=== PATIENT | female | born 1955 | race Caucasian/White ===

== ENCOUNTER 2017-01-26 12:00 | Emergency (ER) | payer BC, OTHER ==
[2017-01-26 12:24] VITALS: BP 125/87; BMI 24.5
--- NOTE | 2017-01-26 12:48 | DR.GENAD ---
HPI - PCP Primary Care Physician: SHABBIR VANG - HPI Comment HPI Comment: PATIENT FELT FEVERISH AT HOME. ALLERGY MEDS NOT HELPING. - Complaint/Symptoms Chief Complaint Doctors Comments: COUGH, COUGH CONGESTION AND CHEST PAIN. Chief Complaint:: PT C/O CCC, ? SINUSES, AND LOOSING MY VOICE AND NOT FEELING GOOD". Self Treatment fo Chief Complaint: PT WENT TO DR. ALAN OFFICE AND WAS GIVEN ALLERGY MEDS 3 WEEKS AGO AND THEY ARE NOT DOING ANY GOOD.. - Nurses notes reviewed Nurses Notes Review: Yes - Source History Provided: Patient - Mode of Arrival Mode of Arrival: Ambulatory - Timing Onset of Chief Complaint: 01/06/17 Came on: Suddenly - Duration Duration: Constant Duration: Days - Severity Severity: Moderate PMH - PMH Past Medical History: Yes Past Medical History: Anxiety, Arthritis, Depression, Hypertension, Hyperthyroidism Past Surgical History: Yes Surgical History: Hysterectomy, Ortho Surgery Past Surgical History Comment: PLATE TO HER RIGHT ARM, MESH SLING. - Family History History of Family Medical Conditions: No Family Medical History Comment: COPD , CA, DM - Social History Does patient currently use any type of tobacco product: No Have you used tobacco products in the last 12 months: No Does any household member use tobacco: No Alcohol Use: None Do you use any recreational Drugs:: No Lives With: Family Lives Where: Home - infectious screening In the last 2 months have you had wt loss of >10#?: NO Have you had fever, night sweats or hemotysis?: No Have you traveled outside the country in the last 6 months?: No Isolation: Standard ROS - Review of Systems Constitutional: Fever, Fatigue. negative: Chills Eyes: No Symptoms Reported. negative: Eye Pain, Discharge ENTM: Nose Discharge, Nose Congestion, Throat Pain. negative: Ear Pain Respiratoy: Productive Cough, Non-Productive Cough. negative: Short of Breath, Wheezing, Hemoptysis Cardiovascular: Chest Pain. negative: Edema, Palpitations Gastrointestinal/Abdominal: No Symptoms Reported. negative: Abdominal Pain, Constipation, Diarrhea, Nausea, Vomiting Genitourinary: No Symptoms Reported. negative: Dysuria, Frequency, Hematuria Neurological: Headache, Weakness, Dizziness Musculoskeletal: Muscle Pain, Chest wall Integumentary: No Symptoms Reported Hematologic/Lymphatic: No Symptoms Reported Endocrine: No Symptoms Reported All Other Systems: Reviewed and Negative PE - Vital Signs Vitals: Temperature 98.0 F Pulse Rate 99 Respiratory Rate 22 Blood Pressure 125/87 O2 Sat by Pulse Oximetry 98 - General Limitations: No Limitations General Appearance: Alert - Head Head Exam: Normal Inspection - Eyes Eye exam: Normal Appearance - ENT ENT Exam: Normal External Ear Exam TM/Canal Exam: Bilateral Normal Nose Exam: Normal Nose Exam Mouth Exam: Normal Inspection Throat Exam: Tonsillar Erythema. negative: Tonsillomegaly, Tonsillar Exudate - Neck Neck Exam: Trachea Midline. negative: Tenderness, Meningismus, Lymphadenopathy - Chest Chest Inspection: Symmetric Chest Wall Rise - Respiratory Respiratory Exam: Normal Lung Sounds Bilat Respiratory Exam: Bilateral Clear to Auscultation - Cardiovascular Cardiovascular Exam: Regular Rate, Normal Rhythm, Normal Heart Sounds - Abdominal Exam Abdominal Exam: Normal Bowel Sounds, Soft. negative: Tenderness - Extremities Extremities Exam: Normal Inspection - Back Back Exam: Normal Inspection - Neurologic Neurological Exam: Alert, Oriented X3 - Psychiatric Psychiatric Exam: Normal Affect, Normal Mood - Skin Skin Exam: Normal Color MDM - Differential Diagnosis Differential Diagnosis: BRONCHITIS, PNEUMONIA, URI Course - Treatment Treatment: REPORT DISCUSS WITH PATIENT. - Education/Counseling Education/Counseling: Patient, Education Educated On: Diagnosis, Needs for Follow Up ROR - Labs Reviewed Laboratory Results Reviewed?: Yes Result Diagrams: 01/26/17 13:11 01/26/17 13:11 Laboratory: WBC 9.2 X10^3/uL (3.6-10.0) 01/26/17 13:11 RBC 3.54 X10^6/uL (3.5-5.4) 01/26/17 13:11 Hgb 11.1 g/dL (12.0-16.0) L 01/26/17 13:11 Hct 33.3 % (36.0-47.0) L 01/26/17 13:11 MCV 94.0 fL (80.0-100.0) 01/26/17 13:11 MCH 31.3 pg (27.0-34.0) 01/26/17 13:11 MCHC 33.3 g/dL (33.0-35.0) 01/26/17 13:11 RDW 13.1 % (11.6-16.5) 01/26/17 13:11 Plt Count 270 X10^3/uL (150.0-450.0) 01/26/17 13:11 MPV 6.8 fL (7.4-11.0) L 01/26/17 13:11 Neut % 68.8 % (42.0-75.0) 01/26/17 13:11 Lymph % 20.7 % (21.0-51.0) L 01/26/17 13:11 [place] % 6.3 % (0.0-13.0) 01/26/17 13:11 Eos % 3.3 % (0.9-2.9) H 01/26/17 13:11 Baso % 0.9 % (0.2-1.0) 01/26/17 13:11 Neut # 6.4 x10^3/uL (2.2-4.8) H 01/26/17 13:11 Lymph # 1.9 X10^3/uL (1.3-2.9) 01/26/17 13:11 [place] # 0.6 x10^3/uL (0.3-0.8) 01/26/17 13:11 Eos # 0.3 x10^3/uL (0.0-0.2) H 01/26/17 13:11 Baso # 0.1 X10^3/uL (0.0-0.1) 01/26/17 13:11 Absolute Nucleated RBC 0.1 /100WBC 01/26/17 13:11 Sodium 144 mmol/L (136-145) 01/26/17 13:11 Corrected Sodium 145 mmol/L (136-145) 01/26/17 13:11 Potassium 4.8 mmol/L (3.5-5.1) 01/26/17 13:11 Chloride 107 mmol/L (98-107) 01/26/17 13:11 Carbon Dioxide 26.7 mmol/L (21-32) 01/26/17 13:11 BUN 13 mg/dL (7-18) 01/26/17 13:11 Creatinine 1.01 mg/dL (0.55-1.02) 01/26/17 13:11 Est GFR (MDRD) Af Amer > 60 (>60) 01/26/17 13:11 Est GFR (MDRD) Non-Af 59 (>60) 01/26/17 13:11 Glucose 144 mg/dL (65-99) H 01/26/17 13:11 Calcium 8.9 mg/dL (8.5-10.1) 01/26/17 13:11 Corrected Calcium TNP 01/26/17 13:11 Total Bilirubin 0.30 mg/dL (0.2-1.0) 01/26/17 13:11 AST 18 Units/L (15-37) 01/26/17 13:11 ALT 20 Units/L (12-78) 01/26/17 13:11 Alkaline Phosphatase 89 Units/L (46-116) 01/26/17 13:11 Total Protein 7.3 g/dL (6.4-8.2) 01/26/17 13:11 Albumin 4.0 g/dL (3.4-5.0) 01/26/17 13:11 Globulin 3.3 g/dL (2.5-4.5) 01/26/17 13:11 Albumin/Globulin Ratio 1.2 Ratio (1.1-2.1) 01/26/17 13:11 - XRAY XRAY Interpreted by: Radiologist XRAY Findings: REPORT DISCUSS WITH PATIENT. - Diagnosis Discharge Problem: Acute bronchitis Qualifiers: Bronchitis organism: other organism Qualified Code(s): J20.8 - Acute bronchitis due to other specified organisms - Discharge Plan Disposition: 01 HOME, SELF-CARE Condition: Stable Prescriptions: Doxycycline (Monohydrate) [Doxycycline Monohydrate] 100 mg PO BID #20 cap Hydrocodone Polist/Chlorphenir [Tussionex Pennkinetic Susp] 5 ml PO Q12H PRN # 60 ml PRN Reason: Cough - Follow ups/Referrals Follow ups/Referrals: Odilon Nino [Primary Care Provider] - 3 days - Instructions Instructions: Acute Bronchitis Additional Instructions: RETURN TO ED IF WORSE.
[2017-01-26 13:26] LABS: BASOPHILS # (AUTO) 0.1 X10^3/uL (0.0-0.1); BASOPHILS % (AUTO) 0.9 % (0.2-1.0); EOSINOPHILS # (AUTO) 0.3 x10^3/uL (0.0-0.2); EOSINOPHILS % (AUTO) 3.3 % (0.9-2.9); HEMATOCRIT 33.3 % (36.0-47.0); HEMOGLOBIN 11.1 g/dL (12.0-16.0); LYMPHOCYTES # (AUTO) 1.9 X10^3/uL (1.3-2.9); LYMPHOCYTES % (AUTO) 20.7 % (21.0-51.0); MEAN CORPUSCULAR HEMOGLOBIN 31.3 pg (27.0-34.0); MEAN CORPUSCULAR HGB CONC 33.3 g/dL (33.0-35.0); MEAN PLATELET VOLUME 6.8 fL (7.4-11.0); MONOCYTES # (AUTO) 0.6 x10^3/uL (0.3-0.8); MONOCYTES % (AUTO) 6.3 % (0.0-13.0); NEUTROPHILS # (AUTO) 6.4 x10^3/uL (2.2-4.8); NEUTROPHILS % (AUTO) 68.8 % (42.0-75.0); PLATELET COUNT 270 X10^3/uL (150.0-450.0); RED BLOOD COUNT 3.54 X10^6/uL (3.5-5.4); RED CELL DISTRIBUTION WIDTH 13.1 % (11.6-16.5); WHITE BLOOD COUNT 9.2 X10^3/uL (3.6-10.0)
--- NOTE | 2017-01-26 13:34 | RAD ---
AP chest Indication: Chest pain with cough Findings: No focal airspace opacity or pleural effusion. No pneumothorax. Heart size is normal. Multiple curvilinear increased densities are noted within the upper thorax and supraclavicular soft tissues in asymmetric pattern likely representing artifact related to an object/necklace superficial to the patient, clinical correlation is needed. Increased density projecting over the right humeral head footplate suspicious for hydroxyapatite dep osition. If there is symptoms within the right shoulder a dedicated right shoulder radiographs can b e performed as clinically warranted. Impression: See above. Reported By:
[2017-01-26 13:37] LABS: ALANINE AMINOTRANSFERASE 20 Units/L (12-78); ALKALINE PHOSPHATASE 89 Units/L (46-116); ASPARTATE AMINO TRANSFERASE 18 Units/L (15-37); BLOOD UREA NITROGEN 13 mg/dL (7-18); CALCIUM 8.9 mg/dL (8.5-10.1); CARBON DIOXIDE 26.7 mmol/L (21-32); CHLORIDE 107 mmol/L (98-107); COR NA(FOR HYPERGLY) 145 mmol/L (136-145); CREATININE 1.01 mg/dL (0.55-1.02); GLUCOSE 144 mg/dL (65-99); SODIUM 144 mmol/L (136-145); TOTAL PROTEIN 7.3 g/dL (6.4-8.2); eGFR BLACK RACES > 60 (>60); eGFR NON BLACK RACES 59 (>60)
== END 2017-01-26 13:56 | disposition home or self-care (01) ==
LOC: ER 12:28
DX: J20.8 Acute bronchitis due to other specified organisms (principal)
CPT/HCPCS: 36415; 71010; 80053; 85025; 99282; 99283

== ENCOUNTER 2017-07-12 06:33 | Emergency (ER) | payer OTHER ==
[2017-07-12 06:34] VITALS: BP 125/87
[2017-07-12 06:52] VITALS: BMI 27.0
--- NOTE | 2017-07-12 07:13 | DR.GENAD ---
HPI - PCP Primary Care Physician: SHABBIR - Complaint/Symptoms Chief Complaint Doctors Comments: Patient states she has been unable to get rid of her cough for the past two weeks. States she has been taking medicines from Dr. Nino and continues to cough. States she was to see Dr. Nino two days ago but they were so busy they called her some medicines into the drug store: Cipro and nasocort nasal spray. States she has taken several other medicines before this but it did not work. She has a cough with scant white, clear and sometimes greenish sputum. States she has chest pain when she cough and she has been having dysuria but denies hematuria or nocturia. She denies tobacco or alcohol usage. She denies wheezing or having SOB. Chief Complaint:: COUGH X 2 WEEKS; VISIT TO PCP X 1 WITH CIPRO ANTIBIOTIC; SORE THROAT DUE TO COUGH Self Treatment fo Chief Complaint: PRESCRIBED ANTIBIOTIC; NYQUIL - Nurses notes reviewed Nurses Notes Review: Yes - Source History Provided: Patient - Mode of Arrival Mode of Arrival: Ambulatory - Timing Onset of Chief Complaint: 06/25/17 Came on: Gradually - Duration Duration: Intermittent How lon Duration: Weeks - Location Location: chest pain when coughs - Severity Severity: Mild - Modifying Factors Worsens:: coughing Improves:: nothing PMH - PMH Past Medical History: Yes Past Medical History: Anxiety, Diabetes, Dyslipidemia, Hypertension Past Surgical History: Yes Surgical History: Hysterectomy - Family History History of Family Medical Conditions: No - Social History Does patient currently use any type of tobacco product: No Have you used tobacco products in the last 12 months: No Type of Tobacco Use: None Does any household member use tobacco: No Alcohol Use: None Do you use any recreational Drugs:: No Lives With: Alone Lives Where: Home - infectious screening In the last 2 months have you had wt loss of >10#?: NO Have you had fever, night sweats or hemotysis?: No Have you traveled outside the country in the last 6 months?: No Isolation: Standard ROS - Review of Systems Constitutional: No Symptoms Reported. negative: See HPI, Chills, Diaphoresis, Fever, Malaise, Weakness, Irritable, Fatigue, Loss of Appetite, Other Eyes: No Symptoms Reported ENTM: No Symptoms Reported, Nose Discharge, Nose Congestion, Throat Pain. negative: See HPI, Ear Pain, Ear Discharge, Pulling on Ears, Hearing Loss, Nose Pain, Epistaxis, Mouth Pain, Mouth Swelling, Loose Teeth, Drooling, Throat Swelling, Ear Foreign Body Respiratoy: No Symptoms Reported, Productive Cough, Dry Cough. negative: See HPI, Non-Productive Cough, Moist Cough, Hacking Cough, Barking Cough, Brassy Cough, Orthopnea, Short of Breath, Stridor, Wheezing, Hemoptysis, Other Cardiovascular: No Symptoms Reported, Chest Pain (when she coughs). negative: See HPI, Edema, Palpitations, Syncope, Cyanosis, Skin Mottling, Other Gastrointestinal/Abdominal: No Symptoms Reported. negative: See HPI, Abdominal Pain, Constipation, Diarrhea, Nausea, Vomiting, Food Intolerance, Other Genitourinary: Dysuria. negative: No Symptoms Reported, See HPI, Discharge, Frequency, Hematuria, Pain, Bleeding, Other Neurological: No Symptoms Reported. negative: See HPI, Anxiety, Depressed, Emotional Problems, Headache, Numbness, Paresthesia, Pre-existing Deficit, Seizure, Tingling, Tremors, Weakness, Dizziness, Problems Walking, Speech Problem, Other Musculoskeletal: No Symptoms Reported Integumentary: No Symptoms Reported. negative: See HPI, Change in Color, Change in Hair/Nails, Dryness, Lesions, Lumps, Rash, Itching, Wound, Bruises, Juandice, Other Hematologic/Lymphatic: No Symptoms Reported. negative: See HPI, Anemia, Blood Clots, Easy Bleeding, Easy Bruising, Swollen Glands, Lymphadenopathy, Other Endocrine: No Symptoms Reported Psychiatric: No Symptoms Reported PE - Vital Signs Vitals: Temperature 97.9 F Pulse Rate 87 Respiratory Rate 20 Blood Pressure 125/87 O2 Sat by Pulse Oximetry 97 - General Limitations: No Limitations General Appearance: Alert, In No Apparent Distress - Head Head Exam: Normal Inspection, Atraumatic, Normocephalic - Eyes Eye exam: Normal Appearance, PERRL, EOMI. negative: Scleral Icterus, Conjunctival Injection, Nystagmus, Miosis, Mydrasis, Periorbital Swelling, Periorbital Tenderness, Other - ENT ENT Exam: Normal Exam, Normal Oropharynx, Normal External Ear Exam, Mucous Membranes Moist, TM's Normal Bilaterally External Ear Exam: Normal External Inspection TM/Canal Exam: Bilateral Normal Nose Exam: Normal Nose Exam Mouth Exam: Normal Inspection Throat Exam: Normal Inspection. negative: Tonsillar Erythema, Tonsillomegaly, Tonsillar Exudate, R Peritonsillar Mass, L Peritonsillar Mass, Muffled Voice, Other - Neck Neck Exam: Normal Inspection, Full ROM, Trachea Midline - Chest Chest Inspection: Normal Inspection, Symmetric Chest Wall Rise - Respiratory Respiratory Exam: Normal Lung Sounds Bilat. negative: Accessory Muscle Use, Chest Wall Tenderness, Prolonged Expiratory Phase, Respiratory Distress, Stridor , Other Respiratory Exam: Bilateral Clear to Auscultation - Cardiovascular Cardiovascular Exam: Regular Rate, Normal Rhythm, Normal Heart Sounds. negative : Bradycardia, Tachycardia, Irregular Rhythm, Systolic Murmur, Diastolic Murmur , Rubs, Gallop, Clicks, JVD, +S1, +S2, +S3, +S4, Other - Abdominal Exam Abdominal Exam: Normal Inspection, Normal Bowel Sounds, Soft. negative: Distention, Tenderness, Guarding, Rebound, Rigidity, Dimnished Bowel Sounds, Hyperactive Bowel Sounds, Hypoactive Bowel Sounds, Organomegaly, Trauma, Incision, Ascites, Mass, Bruit, Pulsatile Mass, Hernia, Other Abdominal Tenderness: negative: RUQ, RLQ, LUQ, LLQ, Epigastrium, Suprapubic, Diffuse, Mild, Moderate, Severe, Other - Extremities Extremities Exam: Normal Inspection, Full ROM, Normal Capillary Refill. negative: Tenderness, Edema, Joint Swelling, Calf Tenderness, Other - Back Back Exam: Normal Inspection, Full ROM. negative: Tenderness, (R) CVA Tenderness, (L) CVA Tenderness, Muscle Spasm, Paraspinal Tenderness, Vertebral Tenderness, Rashes, (R) Sciatic Notch Tenderness, (L) Sciatic Notch Tendern, (R ) Straight Leg Raise, (L) Straight Leg Raise, Other - Neurologic Neurological Exam: Alert, Oriented X3, CN II-XII Intact, Normal Gait, Reflexes Normal - Psychiatric Psychiatric Exam: Normal Affect, Normal Mood. negative: Depressed, Agitated, Anxious, Flat Affect, Manic, Homicidal Ideation, Suicidal Ideation, Other - Skin Skin Exam: Warm, Dry, Intact, Normal Color Course - Education/Counseling Education/Counseling: Patient, Family Educated On: Treatment, Diagnosis, Prognosis (Patient to continue Cipro twice daily as directed x10 days), Needs for Follow Up ROR - Labs Reviewed Laboratory Results Reviewed?: Yes (all labs and x-ray results reviewed and discussed with patient) Result Diagrams: 07/12/17 07:10 07/12/17 07:10 Laboratory: WBC 6.2 X10^3/uL (3.6-10.0) 07/12/17 07:10 RBC 3.70 X10^6/uL (3.5-5.4) 07/12/17 07:10 Hgb 11.8 g/dL (12.0-16.0) L 07/12/17 07:10 Hct 34.6 % (36.0-47.0) L 07/12/17 07:10 MCV 93.5 fL (80.0-100.0) 07/12/17 07:10 MCH 31.8 pg (27.0-34.0) 07/12/17 07:10 MCHC 34.0 g/dL (33.0-35.0) 07/12/17 07:10 RDW 14.1 % (11.6-16.5) 07/12/17 07:10 Plt Count 313 X10^3/uL (150.0-450.0) 07/12/17 07:10 MPV 7.1 fL (7.4-11.0) L 07/12/17 07:10 Neut % 52.6 % (42.0-75.0) 07/12/17 07:10 Lymph % 33.3 % (21.0-51.0) 07/12/17 07:10 [place] % 8.9 % (0.0-13.0) 07/12/17 07:10 Eos % 3.9 % (0.9-2.9) H 07/12/17 07:10 Baso % 1.3 % (0.2-1.0) H 07/12/17 07:10 Neut # 3.3 x10^3/uL (2.2-4.8) 07/12/17 07:10 Lymph # 2.1 X10^3/uL (1.3-2.9) 07/12/17 07:10 [place] # 0.6 x10^3/uL (0.3-0.8) 07/12/17 07:10 Eos # 0.2 x10^3/uL (0.0-0.2) 07/12/17 07:10 Baso # 0.1 X10^3/uL (0.0-0.1) 07/12/17 07:10 Absolute Nucleated RBC 0.0 /100WBC 07/12/17 07:10 Sodium 139 mmol/L (136-145) 07/12/17 07:10 Corrected Sodium TNP 07/12/17 07:10 Potassium 4.2 mmol/L (3.5-5.1) 07/12/17 07:10 Chloride 103 mmol/L (98-107) 07/12/17 07:10 Carbon Dioxide 26.5 mmol/L (21-32) 07/12/17 07:10 BUN 13 mg/dL (7-18) 07/12/17 07:10 Creatinine 1.16 mg/dL (0.55-1.02) H 07/12/17 07:10 Est GFR (MDRD) Af Amer > 60 (>60) 07/12/17 07:10 Est GFR (MDRD) Non-Af 50 (>60) L 07/12/17 07:10 Glucose 110 mg/dL (65-99) H 07/12/17 07:10 Calcium 9.7 mg/dL (8.5-10.1) 07/12/17 07:10 Corrected Calcium TNP 07/12/17 07:10 Total Bilirubin 0.50 mg/dL (0.2-1.0) 07/12/17 07:10 AST 22 Units/L (15-37) 07/12/17 07:10 ALT 24 Units/L (12-78) 07/12/17 07:10 Alkaline Phosphatase 93 Units/L (46-116) 07/12/17 07:10 Total Protein 7.7 g/dL (6.4-8.2) 07/12/17 07:10 Albumin 4.1 g/dL (3.4-5.0) 07/12/17 07:10 Globulin 3.6 g/dL (2.5-4.5) 07/12/17 07:10 Albumin/Globulin Ratio 1.1 Ratio (1.1-2.1) 07/12/17 07:10 - XRAY XRAY Interpreted by: Self (CXR: no acute cardiopulmonary changes noted) - Diagnosis Discharge Problem: Bronchitis Sinusitis, acute Qualifiers: Sinusitis location: ethmoidal - Discharge Plan Disposition: HOME, SELF-CARE Condition: Stable Prescriptions: Montelukast Sodium [Singulair Tab 10 mg] 10 mg PO HS #30 tab - Follow ups/Referrals Follow ups/Referrals: Odilon Nino [Primary Care Provider] - 3 days - Instructions Instructions: Sinusitis, Adult, [id number], Acute Bronchitis
[2017-07-12 07:30] LABS: BASOPHILS # (AUTO) 0.1 X10^3/uL (0.0-0.1); BASOPHILS % (AUTO) 1.3 % (0.2-1.0); EOSINOPHILS # (AUTO) 0.2 x10^3/uL (0.0-0.2); EOSINOPHILS % (AUTO) 3.9 % (0.9-2.9); HEMATOCRIT 34.6 % (36.0-47.0); HEMOGLOBIN 11.8 g/dL (12.0-16.0); LYMPHOCYTES # (AUTO) 2.1 X10^3/uL (1.3-2.9); LYMPHOCYTES % (AUTO) 33.3 % (21.0-51.0); MEAN CORPUSCULAR HEMOGLOBIN 31.8 pg (27.0-34.0); MEAN CORPUSCULAR VOLUME 93.5 fL (80.0-100.0); MEAN PLATELET VOLUME 7.1 fL (7.4-11.0); MONOCYTES # (AUTO) 0.6 x10^3/uL (0.3-0.8); MONOCYTES % (AUTO) 8.9 % (0.0-13.0); NEUTROPHILS # (AUTO) 3.3 x10^3/uL (2.2-4.8); NEUTROPHILS % (AUTO) 52.6 % (42.0-75.0); PLATELET COUNT 313 X10^3/uL (150.0-450.0); RED CELL DISTRIBUTION WIDTH 14.1 % (11.6-16.5); WHITE BLOOD COUNT 6.2 X10^3/uL (3.6-10.0)
[2017-07-12 07:36] LABS: ALANINE AMINOTRANSFERASE 24 Units/L (12-78); ALBUMIN 4.1 g/dL (3.4-5.0); ALKALINE PHOSPHATASE 93 Units/L (46-116); ASPARTATE AMINO TRANSFERASE 22 Units/L (15-37); BLOOD UREA NITROGEN 13 mg/dL (7-18); CALCIUM 9.7 mg/dL (8.5-10.1); CARBON DIOXIDE 26.5 mmol/L (21-32); CHLORIDE 103 mmol/L (98-107); CREATININE 1.16 mg/dL (0.55-1.02); SODIUM 139 mmol/L (136-145); TOTAL PROTEIN 7.7 g/dL (6.4-8.2); eGFR BLACK RACES > 60 (>60); eGFR NON BLACK RACES 50 (>60)
[2017-07-12 08:12] LABS: BILIRUBIN,URINE NEGATIVE (NEGATIVE); BLOOD/HEMOGLOBIN,URINE 1+ (NEGATIVE); GLUCOSE, URINE NEGATIVE (NEGATIVE); KETONES,URINE NEGATIVE (NEGATIVE); LEUKOCYTE ESTERASE ,URINE 2+ (NEGATIVE); NITRITES,URINE NEGATIVE (NEGATIVE); PROTEIN,URINE 1+ (NEGATIVE); UROBILINOGEN,URINE NORMAL (NORMAL)
[2017-07-12 08:24] LABS: APPEARANCE,URINE HAZY (CLEAR); BACTERIA,URINE TRACE /HPF (NEGATIVE); COLOR,URINE YELLOW (YELLOW); RBC,URINE 0-2 /HPF (NEGATIVE); SQUAMOUS EPITHELIAL CELL,UR FEW /HPF (NEGATIVE)
--- NOTE | 2017-07-12 14:51 | RAD ---
HISTORY: Cough 2 weeks. Study: PA and Lateral views of the chest. Comparison: 01/26/2017 Findings: The lungs are clear. No consolidation. There are no pleural effusions. The [place] and cardiomediastinal silhouette appear normal. IMPRESSION: 1. No radiographic evidence of an acute cardiopulmonary process. Reported By:
== END 2017-07-12 08:27 | disposition home or self-care (01) ==
LOC: ER 06:33
DX: J40 Bronchitis, not specified as acute or chronic (principal); J01.80 Other acute sinusitis
CPT/HCPCS: 36415; 71020; 80053; 81001; 85025; 99282; 99283